=== PATIENT | female | born 2000 | race Caucasian/White ===

== ENCOUNTER 2022-07-28 11:13 | Emergency (ER) | payer OTHER ==
[2022-07-28] MEDS ORDERED: IBUPROFEN 400 MG TABLET (FP) PO ONE ×2 (11:17→11:24)
[2022-07-28 11:49] VITALS: BP 125/74; PULSE 104; RESP 20; TEMP 100.1; BMI 25.7
== END 2022-07-28 12:04 | disposition home or self-care (01) ==
LOC: FER 11:13
DX: B34.9 Viral infection, unspecified (principal)
CPT/HCPCS: 0241U-QW; 99283-25